=== PATIENT | male | born 1955 | race African-American/Black ===

== ENCOUNTER 2017-09-11 00:05 | Inpatient (IN) ==
[2017-09-11] MEDS ORDERED: methylPREDNISolone SOD SUC 125 MG/2 ML VIAL IV STA (00:14)
[2017-09-11] MEDS ORDERED: ONDANSETRON 4 MG/2 ML VIAL IV STA (00:14)
[2017-09-11] MEDS ORDERED: PIPERACILLIN/TAZOBACTAM 3,375 MG in SODIUM CHLORIDE 0.9% 100 ML IV STA (00:14)
[2017-09-11] MEDS ORDERED: SODIUM CHLORIDE 0.9% 1,000 ML IV STA ×2 (00:14→02:08)
[2017-09-11] MEDS ORDERED: FUROSEMIDE 100 MG/10 ML VIAL IV STA (00:14)
[2017-09-11] MEDS ORDERED: FUROSEMIDE 20 MG/2 ML VIAL ONE ×2 (00:27→01:00)
[2017-09-11] MEDS ORDERED: ONDANSETRON 4 MG/2 ML VIAL ONE (00:27)
[2017-09-11] MEDS ORDERED: DILTIAZEM 100 MG VIAL.ADD IV ONE ×2 (00:27→00:29)
[2017-09-11] MEDS ORDERED: methylPREDNISolone SOD SUC 125 MG/2 ML VIAL ONE (00:27)
[2017-09-11] MEDS ORDERED: DILTIAZEM 50 MG/10 ML VIAL IV ONE ×2 (00:28→02:10)
[2017-09-11] MEDS ORDERED: DILTIAZEM INJ 100 MG in SODIUM CHLORIDE 0.9% 100 ML IV SCH (00:30)
[2017-09-11] MEDS ORDERED: SODIUM CHLORIDE 0.9% 100 ML IV ONE (00:32)
[2017-09-11] MEDS ORDERED: FUROSEMIDE 40 MG/4 ML VIAL IV STA (00:35)
[2017-09-11 00:52] LABS: Basophils % 0.1 % (0.0-0.8); Hematocrit 37.4 VOL% (42.0-52.0); Hemoglobin 12.5 GM/DL (14.0-18.0); Immature Granulocytes % 0.6 %; Immature Granulocytes Absolute 0.08 #; Lymphocytes # 0.5 10*3/uL (1.4-4.0); Lymphocytes % 3.9 % (21.2-54.2); Mean Corpuscular HGB Conc 33.4 GM/DL (32-36); Mean Corpuscular Hemoglobin 32 PG (27-34); Mean Corpuscular Volume 95.9 FL (87-102); Mean Platelet Volume 11.2 FL (9.6-12.0); Monocytes # 0.7 10*3/uL (0.11-0.8); Monocytes % 5.1 % (1.7-12.7); Neutrophils # 12.5 10*3/uL (1.4-7.4); Neutrophils % 90.3 % (38.7-73.9); Platelet Count 276 T/CUMM (130-400); White Blood Count 13.8 T/CUMM (4-12)
[2017-09-11] MEDS ORDERED: PIPERACILLIN/TAZOBACTAM 3,375 MG VIAL IV ONE (01:00)
[2017-09-11 01:02] LABS: INR 1.9; PT Patient Result 19.7 SECS
[2017-09-11 01:17] LABS: Albumin 3.2 G/DL (3.4-5.0); Bilirubin,Total 0.7 MG/DL (0.2-1.0); Calcium 9.1 MG/DL (8.5-10.1); Lactic Acid 6.4 MMOL/L (0.4-2.0); Osmolality,Calculated 303.8 MOS/KG (273-304); Potassium 5.1 MMOL/L (3.5-5.1); Total Protein 6.6 G/DL (6.4-8.3)
[2017-09-11 01:18] LABS: Apearance,Urine CLOUDY (Clear); Bacteria,Urine Moderate /HPF (Few); Bilirubin,Urine Negative (Negative); Blood, Urine Large mg/dL (Negative); Glucose,Urine (UA) >=500 mg/dL (Negative); Ketones,Urine 5 mg/dL (Negative); Mucus,Urine Occasional /LPF (Occasional); Nitrite,Urine Negative (Negative); Protein,Urine 100 MG/DL; RBC,Urine 10 /HPF (0-4); Urine Color Amber (Yellow); WBC,Urine 15 /HPF (0-6)
[2017-09-11] MEDS: DILTIAZEM 50 MG/10 ML VIAL IV STA ×2 (01:19→02:18)
[2017-09-11 01:21] LABS: ABG Base Excess -1.1 MMOL/L (-2.5-2.5); ABG HCO3 23.4 MMOL/L (20-26); ABG Oxygen Saturation 93.3 % (95-100); ABG PCO2 35.5 MM HG (35-48); ABG PH 7.418 (7.35-7.45); ABG PO2 71.9 MM HG (80-95); ABG TCO2 20.4 MMOL/L (23-27)
[2017-09-11 01:29] LABS: Troponin I Only 1.34 NG/ML (0.00-0.045)
[2017-09-11] MEDS ORDERED: cefTRIAXone 1,000 MG in SYRINGE 1 EACH IV SCH (01:30)
[2017-09-11 01:36] LABS: Lymphocytes 2 % (20-55); Segmented Neutrophils 93 % (50-85); Total Cells Counted 100
[2017-09-11 01:38] LABS: INR 1.9; PT Patient Result 19.4 SECS; Partial Thromboplastin Time 32.6 SECS (0-40)
[2017-09-11] MEDS ORDERED: INSULIN REGULAR 100 UNIT/ML SUBCUT STA (01:39)
[2017-09-11] MEDS ORDERED: PROPOFOL 200 MG/20 ML VIAL IV ONE (02:06)
[2017-09-11] MEDS ORDERED: ALBUTEROL 2.5 MG/3 ML NEB RESP TX SCH (02:30)
[2017-09-11] MEDS ORDERED: SUCCINYLCHOLINE 200 MG/10 ML VIAL ONE (02:38)
[2017-09-11] MEDS ORDERED: ETOMIDATE 20 MG/10 ML VIAL IV ONE (02:38)
[2017-09-11] MEDS ORDERED: ETOMIDATE 20 MG/10 ML VIAL IV STA (02:42)
[2017-09-11] MEDS ORDERED: SUCCINYLCHOLINE 200 MG/10 ML VIAL IV STA (02:42)
[2017-09-11] MEDS ORDERED: MIDAZOLAM 10 MG/2 ML VIAL IV STA (02:44)
[2017-09-11] MEDS ORDERED: fentaNYL 100 MCG/2 ML VIAL IV STA (02:45)
[2017-09-11] MEDS ORDERED: fentaNYL 100 MCG/2 ML VIAL ONE (02:49)
[2017-09-11] MEDS ORDERED: MIDAZOLAM 10 MG/2 ML VIAL ONE (02:49)
[2017-09-11] MEDS ORDERED: fentaNYL INJ 1,250 MCG in SODIUM CHLORIDE 0.9% 225 ML IV SCH (03:00)
[2017-09-11] MEDS ORDERED: cefTRIAXone 1,000 MG VIAL ONE (03:07)
[2017-09-11] MEDS ORDERED: INSULIN REGULAR 100 UNIT/ML ONE (03:09)
[2017-09-11] MEDS ORDERED: NOREPINEPHRINE 4 MG/4 ML VIAL IV ONE (03:38)
[2017-09-11] MEDS: MIDAZOLAM 100 MG in SODIUM CHLORIDE 0.9% 80 ML IV SCH (03:43)
[2017-09-11] MEDS: NOREPINEPHRINE 8 MG in SODIUM CHLORIDE 0.9% 242 ML IV SCH ×2 (03:58→20:11)
[2017-09-11] MEDS ORDERED: ENOXAPARIN 40 MG/0.4 ML SYRINGE SUBCUT SCH (04:35)
[2017-09-11] MEDS ORDERED: ONDANSETRON 4 MG/2 ML VIAL IV PRN (04:35)
[2017-09-11] MEDS ORDERED: GLUCAGON 1 MG VIAL IM PRN (04:35)
[2017-09-11] MEDS ORDERED: DEXTROSE 50% 25 GM/50 ML VIAL IV PRN (04:35)
[2017-09-11] MEDS ORDERED: LEVALBUTEROL 1.25 MG/3 ML NEB RESP TX PRN (04:35)
[2017-09-11] MEDS ORDERED: INFLUENZA VIRUS VACCINE 0.5 ML SYRINGE IM ONE (04:41)
[2017-09-11 05:16] LABS: ABG Base Excess -1.9 MMOL/L (-2.5-2.5); ABG HCO3 22.9 MMOL/L (20-26); ABG PCO2 33.6 MM HG (35-48); ABG PH 7.422 (7.35-7.45); ABG TCO2 19.7 MMOL/L (23-27); Allen Test Positive; Pt O2 Delivery Device Ventilator
[2017-09-11] MEDS: LEVALBUTEROL 1.25 MG/3 ML NEB RESP TX SCH ×5 (05:22→20:42)
[2017-09-11 05:36] LABS: Basophils % 0.1 % (0.0-0.8); Hemoglobin 10.8 GM/DL (14.0-18.0); Immature Granulocytes % 0.7 %; Immature Granulocytes Absolute 0.08 #; Lymphocytes # 0.5 10*3/uL (1.4-4.0); Lymphocytes % 4.3 % (21.2-54.2); Mean Corpuscular HGB Conc 32.7 GM/DL (32-36); Mean Corpuscular Hemoglobin 32 PG (27-34); Mean Corpuscular Volume 96.5 FL (87-102); Mean Platelet Volume 11.2 FL (9.6-12.0); Monocytes # 0.5 10*3/uL (0.11-0.8); Monocytes % 3.9 % (1.7-12.7); NRBC # 0.02 10*3/uL; Neutrophils # 11.1 10*3/uL (1.4-7.4); Platelet Count 274 T/CUMM (130-400); Red Blood Count 3.42 MC/CUMM (3.8-5.5); Red Cell Distribution Width 13.8 % (9.3-17.3); White Blood Count 12.2 T/CUMM (4-12)
[2017-09-11] MEDS: METOPROLOL TARTRATE 5 MG/5 ML VIAL IV PRN (05:51)
[2017-09-11 06:12] LABS: Albumin 2.7 G/DL (3.4-5.0); Bilirubin,Direct 0.25 MG/DL (0.0-0.20); Bilirubin,Indirect 0.4 MG/DL (0.0-1.0); Bilirubin,Total 0.6 MG/DL (0.2-1.0); Total Protein 5.7 G/DL (6.4-8.3)
[2017-09-11 06:14] LABS: Albumin 2.6 G/DL (3.4-5.0); Bilirubin,Total 0.8 MG/DL (0.2-1.0); Calcium 8.2 MG/DL (8.5-10.1); Osmolality,Calculated 301.5 MOS/KG (273-304); Potassium 4.3 MMOL/L (3.5-5.1); Total Protein 5.5 G/DL (6.4-8.3)
[2017-09-11 06:19] LABS: Band Neutrophils 1 % (0-10); Hypochromasia 1+; Lymphocytes 3 % (20-55); Microcytosis 1+; Segmented Neutrophils 91 % (50-85); Total Cells Counted 100
[2017-09-11 06:20] LABS: Ovalocytes Slight
[2017-09-11] MEDS: INSULIN REGULAR 100 UNIT/ML SUBCUT SCH ×3 (06:26→18:08)
[2017-09-11] MEDS ORDERED: FUROSEMIDE 40 MG/4 ML VIAL IV SCH (08:00)
[2017-09-11] MEDS ORDERED: SODIUM CHLORIDE 0.9% 1,000 ML IV ONE ×3 (08:13→16:30)
[2017-09-11] MEDS ORDERED: AMIODARONE INJ 150 MG in DEXTROSE 5% 100 ML IV ONE (08:14)
[2017-09-11] MEDS ORDERED: ENOXAPARIN 40 MG/0.4 ML SYRINGE SUBCUT ONE (08:16)
[2017-09-11] MEDS ORDERED: AMIODARONE INJ 450 MG in DEXTROSE 5% 241 ML IV SCH (08:30)
[2017-09-11] MEDS ORDERED: GENTAMICIN INJ 160 MG in SODIUM CHLORIDE 0.9% 100 ML IV SCH (09:00)
[2017-09-11] MEDS ORDERED: DOCUSATE SODIUM 100 MG CAPSULE PO SCH (09:00)
[2017-09-11] MEDS: ASPIRIN EC 81 MG TABLET PO SCH (09:28)
[2017-09-11] MEDS: DOCUSATE SODIUM 100 MG/10 ML UDCUP PO SCH ×2 (09:28→20:08)
[2017-09-11] MEDS: PANTOPRAZOLE 40 MG VIAL IV SCH (09:29)
[2017-09-11] MEDS: SODIUM CHLORIDE 0.9% 1,000 ML IV SCH ×2 (10:18→20:08)
[2017-09-11 10:22] LABS: ABG Base Excess -2.2 MMOL/L (-2.5-2.5); ABG HCO3 22.6 MMOL/L (20-26); ABG Oxygen Saturation 99.6 % (95-100); ABG PCO2 36.6 MM HG (35-48); ABG PH 7.392 (7.35-7.45); Pt O2 Delivery Device Ventilator
[2017-09-11 10:45] LABS: Free T4 (Free Thyroxine) 1.03 NG/DL (0.76-1.46); T4 (Thyroxine) 5.7 UG/DL (4.7-13.3); Thyroid Stimulating Hormone 1.24 uIU/ml (0.358-3.74)
[2017-09-11] MEDS: PIPERACILLIN/TAZOBACTAM 3,375 MG in SODIUM CHLORIDE 0.9% 100 ML IV SCH (15:47)
[2017-09-11] MEDS: VANCOMYCIN INJ 1,000 MG in SODIUM CHLORIDE 0.9% 250 ML IV SCH (15:50)
[2017-09-11] MEDS: AMIODARONE INJ 450 MG in DEXTROSE 5% 241 ML IV SCH ×2 (16:23→20:08)
[2017-09-11 17:40] LABS: Lactic Acid 2.1 MMOL/L (0.4-2.0)
[2017-09-11 17:48] LABS: Albumin 2.4 G/DL (3.4-5.0); Bilirubin,Total 0.5 MG/DL (0.2-1.0); Calcium 7.6 MG/DL (8.5-10.1); Osmolality,Calculated 303.4 MOS/KG (273-304); Potassium 4.5 MMOL/L (3.5-5.1); Total Protein 5.1 G/DL (6.4-8.3)
[2017-09-11] MEDS: ENOXAPARIN 80 MG/0.8 ML SYRINGE SUBCUT SCH (20:08)
[2017-09-12] MEDS: INSULIN REGULAR 100 UNIT/ML SUBCUT SCH ×4 (00:18→19:00)
[2017-09-12] MEDS: PIPERACILLIN/TAZOBACTAM 3,375 MG in SODIUM CHLORIDE 0.9% 100 ML IV SCH ×3 (00:18→16:43)
[2017-09-12] MEDS: LEVALBUTEROL 1.25 MG/3 ML NEB RESP TX SCH ×7 (00:52→23:51)
[2017-09-12] MEDS: VANCOMYCIN INJ 1,000 MG in SODIUM CHLORIDE 0.9% 250 ML IV SCH ×2 (01:29→16:44)
[2017-09-12] MEDS: SODIUM CHLORIDE 0.9% 1,000 ML IV SCH (04:31)
[2017-09-12] MEDS: NOREPINEPHRINE 8 MG in SODIUM CHLORIDE 0.9% 242 ML IV SCH ×2 (04:31→15:17)
[2017-09-12 05:24] LABS: Basophils % 0.1 % (0.0-0.8); Hematocrit 36.6 VOL% (42.0-52.0); Hemoglobin 11.9 GM/DL (14.0-18.0); Immature Granulocytes % 0.4 %; Immature Granulocytes Absolute 0.06 #; Lymphocytes # 1.1 10*3/uL (1.4-4.0); Lymphocytes % 7.6 % (21.2-54.2); Mean Corpuscular HGB Conc 32.5 GM/DL (32-36); Mean Corpuscular Hemoglobin 32 PG (27-34); Mean Corpuscular Volume 98.1 FL (87-102); Mean Platelet Volume 10.9 FL (9.6-12.0); Monocytes # 1.6 10*3/uL (0.11-0.8); Monocytes % 11.1 % (1.7-12.7); NRBC # 0.08 10*3/uL; Neutrophils # 11.8 10*3/uL (1.4-7.4); Neutrophils % 80.8 % (38.7-73.9); Platelet Count 348 T/CUMM (130-400); Red Blood Count 3.73 MC/CUMM (3.8-5.5); Red Cell Distribution Width 13.9 % (9.3-17.3); White Blood Count 14.7 T/CUMM (4-12)
[2017-09-12 06:02] LABS: Risk Ratio 4.14; VLDL CHOLESTEROL 12.2 MG/DL
[2017-09-12 06:06] LABS: Albumin 2.5 G/DL (3.4-5.0); Bilirubin,Total 0.5 MG/DL (0.2-1.0); Calcium 8.1 MG/DL (8.5-10.1); Magnesium 1.9 MG/DL (1.8-2.4); Osmolality,Calculated 298.1 MOS/KG (273-304); Potassium 4.3 MMOL/L (3.5-5.1); Total Protein 5.3 G/DL (6.4-8.3)
[2017-09-12] MEDS: AMIODARONE INJ 450 MG in DEXTROSE 5% 241 ML IV SCH ×2 (06:10→10:58)
[2017-09-12] MEDS: MIDAZOLAM 100 MG in SODIUM CHLORIDE 0.9% 80 ML IV SCH ×2 (06:10→20:55)
[2017-09-12] MEDS ORDERED: LIDOCAINE 2% 20 ML VIAL RESP TX ONE (07:36)
[2017-09-12] MEDS ORDERED: LIDOCAINE 1% 20 ML VIAL MISC INJ ONE (07:36)
[2017-09-12] MEDS ORDERED: FUROSEMIDE 40 MG/4 ML VIAL IV ONE (07:38)
[2017-09-12] MEDS: PANTOPRAZOLE 40 MG VIAL IV SCH (10:45)
[2017-09-12] MEDS: DOCUSATE SODIUM 100 MG/10 ML UDCUP PO SCH ×2 (10:47→21:41)
[2017-09-12] MEDS: ENOXAPARIN 80 MG/0.8 ML SYRINGE SUBCUT SCH ×2 (10:48→21:39)
[2017-09-12] MEDS: ASPIRIN EC 81 MG TABLET PO SCH (10:48)
[2017-09-12] MEDS: AMIODARONE 200 MG TABLET PO SCH ×2 (16:43→21:39)
[2017-09-12] MEDS: METOPROLOL TARTRATE 5 MG/5 ML VIAL IV PRN ×2 (16:44→21:55)
[2017-09-12] MEDS: FUROSEMIDE 40 MG/4 ML VIAL IV SCH (16:44)
[2017-09-12] MEDS: ZINC OXIDE PASTE 113 GM TUBE TOP SCH (21:41)
[2017-09-13] MEDS: PIPERACILLIN/TAZOBACTAM 3,375 MG in SODIUM CHLORIDE 0.9% 100 ML IV SCH ×3 (00:29→16:50)
[2017-09-13] MEDS: INSULIN REGULAR 100 UNIT/ML SUBCUT SCH ×4 (00:47→18:23)
[2017-09-13] MEDS ORDERED: AMIODARONE 450 MG/9 ML VIAL IV ONE (01:20)
[2017-09-13] MEDS ORDERED: AMIODARONE INJ 450 MG in DEXTROSE 5% 241 ML IV SCH (01:30)
[2017-09-13] MEDS: VANCOMYCIN INJ 1,000 MG in SODIUM CHLORIDE 0.9% 250 ML IV SCH ×2 (01:35→13:41)
[2017-09-13 02:57] LABS: ABG HCO3 20.4 MMOL/L (20-26); ABG Oxygen Saturation 99.3 % (95-100); ABG PH 7.383 (7.35-7.45); ABG PO2 227.4 MM HG (80-95); ABG TCO2 21.5 MMOL/L (23-27); Allen Test Positive; Pt O2 Delivery Device Ventilator
[2017-09-13 03:36] LABS: Basophils % 0.2 % (0.0-0.8); Hematocrit 37.6 VOL% (42.0-52.0); Hemoglobin 12.3 GM/DL (14.0-18.0); Immature Granulocytes % 0.6 %; Lymphocytes # 1.3 10*3/uL (1.4-4.0); Lymphocytes % 8.1 % (21.2-54.2); Mean Corpuscular HGB Conc 32.7 GM/DL (32-36); Mean Corpuscular Hemoglobin 32 PG (27-34); Mean Corpuscular Volume 97.9 FL (87-102); Mean Platelet Volume 10.2 FL (9.6-12.0); Monocytes # 1.7 10*3/uL (0.11-0.8); Monocytes % 10.3 % (1.7-12.7); NRBC # 0.05 10*3/uL; Neutrophils # 13.2 10*3/uL (1.4-7.4); Neutrophils % 80.8 % (38.7-73.9); Platelet Count 331 T/CUMM (130-400); Red Blood Count 3.84 MC/CUMM (3.8-5.5); Red Cell Distribution Width 14.2 % (9.3-17.3); White Blood Count 16.4 T/CUMM (4-12)
[2017-09-13] MEDS: LEVALBUTEROL 1.25 MG/3 ML NEB RESP TX SCH ×6 (04:10→23:38)
[2017-09-13 04:15] LABS: Albumin 2.5 G/DL (3.4-5.0); Bilirubin,Total 0.7 MG/DL (0.2-1.0); Calcium 8.1 MG/DL (8.5-10.1); Total Protein 5.5 G/DL (6.4-8.3)
[2017-09-13] MEDS: NOREPINEPHRINE 8 MG in SODIUM CHLORIDE 0.9% 242 ML IV SCH ×2 (05:45→08:26)
[2017-09-13 05:52] LABS: Magnesium 1.7 MG/DL (1.8-2.4); Phosphorous 4.4 MG/DL (2.5-4.9); Prealbumin 12.6 MG/DL (20-40)
[2017-09-13] MEDS: DOCUSATE SODIUM 100 MG/10 ML UDCUP PO SCH ×2 (09:04→20:39)
[2017-09-13] MEDS: ASPIRIN EC 81 MG TABLET PO SCH (09:04)
[2017-09-13] MEDS: FUROSEMIDE 40 MG/4 ML VIAL IV SCH ×2 (09:04→16:49)
[2017-09-13] MEDS: ENOXAPARIN 80 MG/0.8 ML SYRINGE SUBCUT SCH ×2 (09:04→20:39)
[2017-09-13] MEDS: AMIODARONE 200 MG TABLET PO SCH (09:06)
[2017-09-13] MEDS: PANTOPRAZOLE 40 MG VIAL IV SCH (09:20)
[2017-09-13] MEDS: MIDAZOLAM 100 MG in SODIUM CHLORIDE 0.9% 80 ML IV SCH ×2 (09:21→13:38)
[2017-09-13] MEDS: AMIODARONE INJ 450 MG in DEXTROSE 5% 241 ML IV SCH (09:21)
[2017-09-13] MEDS: ZINC OXIDE PASTE 113 GM TUBE TOP SCH ×2 (13:41→21:39)
[2017-09-13] MEDS: fentaNYL 100 MCG/2 ML VIAL IV PRN (21:36)
[2017-09-14] MEDS: AMIODARONE INJ 450 MG in DEXTROSE 5% 241 ML IV SCH ×2 (00:01→14:31)
[2017-09-14] MEDS: PIPERACILLIN/TAZOBACTAM 3,375 MG in SODIUM CHLORIDE 0.9% 100 ML IV SCH ×3 (00:25→15:22)
[2017-09-14] MEDS: INSULIN REGULAR 100 UNIT/ML SUBCUT SCH ×4 (00:25→18:31)
[2017-09-14 03:10] LABS: Allen Test Positive; Pt O2 Delivery Device Ventilator
[2017-09-14 03:11] LABS: ABG Base Excess 2.3 MMOL/L (-2.5-2.5); ABG HCO3 26.4 MMOL/L (20-26); ABG Oxygen Saturation 99.2 % (95-100); ABG PCO2 39.5 MM HG (35-48); ABG PH 7.435 (7.35-7.45); ABG TCO2 23.8 MMOL/L (23-27)
[2017-09-14] MEDS: LEVALBUTEROL 1.25 MG/3 ML NEB RESP TX SCH ×6 (03:58→23:30)
[2017-09-14] MEDS: fentaNYL 100 MCG/2 ML VIAL IV PRN ×3 (04:34→22:08)
[2017-09-14] MEDS: NOREPINEPHRINE 8 MG in SODIUM CHLORIDE 0.9% 242 ML IV SCH ×2 (04:36→12:35)
[2017-09-14 05:11] LABS: Basophils % 0.3 % (0.0-0.8); Eosinophils # 0.1 10*3/uL (0.0-0.87); Eosinophils % 0.7 % (0.00-10.9); Hematocrit 34.1 VOL% (42.0-52.0); Hemoglobin 11.3 GM/DL (14.0-18.0); Immature Granulocytes % 0.3 %; Immature Granulocytes Absolute 0.02 #; Lymphocytes # 0.8 10*3/uL (1.4-4.0); Lymphocytes % 10.4 % (21.2-54.2); Mean Corpuscular HGB Conc 33.1 GM/DL (32-36); Mean Corpuscular Hemoglobin 32 PG (27-34); Mean Corpuscular Volume 96.9 FL (87-102); Mean Platelet Volume 10.1 FL (9.6-12.0); Monocytes # 0.7 10*3/uL (0.11-0.8); Monocytes % 9.1 % (1.7-12.7); Neutrophils # 6.1 10*3/uL (1.4-7.4); Neutrophils % 79.2 % (38.7-73.9); Platelet Count 213 T/CUMM (130-400); Red Blood Count 3.52 MC/CUMM (3.8-5.5); Red Cell Distribution Width 14.1 % (9.3-17.3); White Blood Count 7.7 T/CUMM (4-12)
[2017-09-14 05:24] LABS: Albumin 2.3 G/DL (3.4-5.0); Bilirubin,Total 1.3 MG/DL (0.2-1.0); Magnesium 1.7 MG/DL (1.8-2.4); Osmolality,Calculated 304.6 MOS/KG (273-304); Potassium 2.9 MMOL/L (3.5-5.1)
[2017-09-14] MEDS: MIDAZOLAM 100 MG in SODIUM CHLORIDE 0.9% 80 ML IV SCH (08:09)
[2017-09-14] MEDS: FUROSEMIDE 40 MG/4 ML VIAL IV SCH ×2 (08:22→15:22)
[2017-09-14] MEDS: PANTOPRAZOLE 40 MG VIAL IV SCH (08:22)
[2017-09-14] MEDS: VANCOMYCIN INJ 1,000 MG in SODIUM CHLORIDE 0.9% 250 ML IV SCH (08:23)
[2017-09-14] MEDS: DOCUSATE SODIUM 100 MG/10 ML UDCUP PO SCH ×2 (08:24→22:00)
[2017-09-14] MEDS: ASPIRIN EC 81 MG TABLET PO SCH (08:24)
[2017-09-14] MEDS: ZINC OXIDE PASTE 113 GM TUBE TOP SCH ×2 (08:24→22:00)
[2017-09-14] MEDS: ENOXAPARIN 80 MG/0.8 ML SYRINGE SUBCUT SCH ×2 (08:25→21:55)
[2017-09-14] MEDS: DEXMEDETOMIDINE 200 MCG in SODIUM CHLORIDE 0.9% 48 ML IV SCH ×2 (09:27→15:22)
[2017-09-14] MEDS ORDERED: MAGNESIUM SULF RIDER 4 GM in PREMIX 1 EACH IV PRN (11:06)
[2017-09-14] MEDS: POTASSIUM CHLORIDE RIDER 20 MEQ in PREMIX 1 EACH IV PRN ×3 (12:34→23:00)
[2017-09-14] MEDS: MAGNESIUM SULF RIDER 2 GM in PREMIX 1 EACH IV PRN (12:34)
[2017-09-14] MEDS: POTASSIUM CHLORIDE RIDER 10 MEQ in PREMIX 1 EACH IV PRN (16:29)
[2017-09-14] MEDS: PROPOFOL 1,000 MG/100 ML BOTTLE IV SCH (21:04)
[2017-09-15] MEDS: POTASSIUM CHLORIDE RIDER 20 MEQ in PREMIX 1 EACH IV PRN ×2 (01:00→11:16)
[2017-09-15] MEDS: INSULIN REGULAR 100 UNIT/ML SUBCUT SCH ×4 (01:05→18:06)
[2017-09-15] MEDS: PIPERACILLIN/TAZOBACTAM 3,375 MG in SODIUM CHLORIDE 0.9% 100 ML IV SCH ×3 (01:09→15:53)
[2017-09-15] MEDS: fentaNYL 100 MCG/2 ML VIAL IV PRN ×2 (01:23→11:04)
[2017-09-15] MEDS: PROPOFOL 1,000 MG/100 ML BOTTLE IV SCH ×3 (03:30→19:56)
[2017-09-15] MEDS: LEVALBUTEROL 1.25 MG/3 ML NEB RESP TX SCH ×5 (03:50→20:45)
[2017-09-15] MEDS: VANCOMYCIN INJ 1,000 MG in SODIUM CHLORIDE 0.9% 250 ML IV SCH (04:29)
[2017-09-15] MEDS: POTASSIUM CHLORIDE RIDER 10 MEQ in PREMIX 1 EACH IV PRN ×2 (04:34→13:11)
[2017-09-15 04:56] LABS: Basophils % 0.2 % (0.0-0.8); Eosinophils # 0.2 10*3/uL (0.0-0.87); Eosinophils % 1.5 % (0.00-10.9); Hematocrit 34.7 VOL% (42.0-52.0); Hemoglobin 11.7 GM/DL (14.0-18.0); Immature Granulocytes % 0.3 %; Immature Granulocytes Absolute 0.04 #; Lymphocytes # 1.2 10*3/uL (1.4-4.0); Lymphocytes % 9.5 % (21.2-54.2); Mean Corpuscular HGB Conc 33.7 GM/DL (32-36); Mean Corpuscular Hemoglobin 32 PG (27-34); Mean Corpuscular Volume 95.3 FL (87-102); Mean Platelet Volume 10.3 FL (9.6-12.0); Monocytes % 7.9 % (1.7-12.7); Neutrophils # 10.5 10*3/uL (1.4-7.4); Neutrophils % 80.6 % (38.7-73.9); Platelet Count 274 T/CUMM (130-400); Red Blood Count 3.64 MC/CUMM (3.8-5.5); Red Cell Distribution Width 14.3 % (9.3-17.3); White Blood Count 13.1 T/CUMM (4-12)
[2017-09-15 05:23] LABS: Calcium 7.8 MG/DL (8.5-10.1); Magnesium 1.8 MG/DL (1.8-2.4); Osmolality,Calculated 300.7 MOS/KG (273-304); Potassium 3.4 MMOL/L (3.5-5.1)
[2017-09-15] MEDS: NOREPINEPHRINE 8 MG in SODIUM CHLORIDE 0.9% 242 ML IV SCH ×2 (07:30→11:33)
[2017-09-15] MEDS: AMIODARONE INJ 450 MG in DEXTROSE 5% 241 ML IV SCH ×2 (07:31→08:17)
[2017-09-15] MEDS: PANTOPRAZOLE 40 MG VIAL IV SCH (08:57)
[2017-09-15] MEDS: FUROSEMIDE 40 MG/4 ML VIAL IV SCH ×2 (08:57→15:52)
[2017-09-15] MEDS: ENOXAPARIN 80 MG/0.8 ML SYRINGE SUBCUT SCH ×2 (08:58→20:27)
[2017-09-15] MEDS: ZINC OXIDE PASTE 113 GM TUBE TOP SCH ×2 (08:59→20:28)
[2017-09-15] MEDS: DOCUSATE SODIUM 100 MG/10 ML UDCUP PO SCH ×2 (08:59→20:28)
[2017-09-15] MEDS: ASPIRIN CHEW 81 MG TABLET PO SCH (08:59)
[2017-09-15] MEDS: AMIODARONE 200 MG TABLET PO SCH ×2 (09:03→20:28)
[2017-09-15] MEDS: ACETAMINOPHEN 325 MG TABLET PO PRN ×2 (14:25→19:54)
[2017-09-16] MEDS: LEVALBUTEROL 1.25 MG/3 ML NEB RESP TX SCH ×6 (00:32→20:05)
[2017-09-16] MEDS: INSULIN REGULAR 100 UNIT/ML SUBCUT SCH ×4 (00:44→17:44)
[2017-09-16] MEDS: VANCOMYCIN INJ 1,000 MG in SODIUM CHLORIDE 0.9% 250 ML IV SCH ×2 (01:00→13:36)
[2017-09-16] MEDS: PIPERACILLIN/TAZOBACTAM 3,375 MG in SODIUM CHLORIDE 0.9% 100 ML IV SCH ×3 (01:00→16:45)
[2017-09-16] MEDS: PROPOFOL 1,000 MG/100 ML BOTTLE IV SCH ×4 (01:06→21:02)
[2017-09-16 03:59] LABS: ABG Base Excess 6.7 MMOL/L (-2.5-2.5); ABG HCO3 30.5 MMOL/L (20-26); ABG Oxygen Saturation 98.8 % (95-100); ABG PCO2 41.7 MM HG (35-48); ABG PH 7.477 (7.35-7.45); ABG TCO2 28.1 MMOL/L (23-27)
[2017-09-16 05:58] LABS: Basophils % 0.3 % (0.0-0.8); Eosinophils # 0.4 10*3/uL (0.0-0.87); Eosinophils % 4.6 % (0.00-10.9); Hematocrit 29.9 VOL% (42.0-52.0); Hemoglobin 9.9 GM/DL (14.0-18.0); Immature Granulocytes % 0.5 %; Immature Granulocytes Absolute 0.04 #; Lymphocytes # 0.8 10*3/uL (1.4-4.0); Lymphocytes % 10.3 % (21.2-54.2); Mean Corpuscular HGB Conc 33.1 GM/DL (32-36); Mean Corpuscular Hemoglobin 32 PG (27-34); Mean Corpuscular Volume 97.4 FL (87-102); Mean Platelet Volume 10.2 FL (9.6-12.0); Monocytes # 0.6 10*3/uL (0.11-0.8); Monocytes % 8.4 % (1.7-12.7); Neutrophils # 5.7 10*3/uL (1.4-7.4); Neutrophils % 75.9 % (38.7-73.9); Platelet Count 174 T/CUMM (130-400); Red Blood Count 3.07 MC/CUMM (3.8-5.5); Red Cell Distribution Width 14.7 % (9.3-17.3); White Blood Count 7.5 T/CUMM (4-12)
[2017-09-16 06:24] LABS: Calcium 7.8 MG/DL (8.5-10.1); Osmolality,Calculated 294.7 MOS/KG (273-304); Potassium 3.5 MMOL/L (3.5-5.1)
[2017-09-16] MEDS: ACETAMINOPHEN 325 MG TABLET PO PRN (06:46)
[2017-09-16] MEDS: NOREPINEPHRINE 8 MG in SODIUM CHLORIDE 0.9% 242 ML IV SCH (06:52)
[2017-09-16] MEDS: PANTOPRAZOLE 40 MG VIAL IV SCH (08:33)
[2017-09-16] MEDS: FUROSEMIDE 40 MG/4 ML VIAL IV SCH ×2 (08:33→16:45)
[2017-09-16] MEDS: DOCUSATE SODIUM 100 MG/10 ML UDCUP PO SCH ×2 (08:34→21:01)
[2017-09-16] MEDS: ASPIRIN CHEW 81 MG TABLET PO SCH (08:34)
[2017-09-16] MEDS: ENOXAPARIN 80 MG/0.8 ML SYRINGE SUBCUT SCH (08:34)
[2017-09-16] MEDS: POTASSIUM CHLORIDE RIDER 20 MEQ in PREMIX 1 EACH IV PRN (08:34)
[2017-09-16] MEDS: AMIODARONE 200 MG TABLET PO SCH ×2 (08:34→21:01)
[2017-09-16] MEDS: ZINC OXIDE PASTE 113 GM TUBE TOP SCH ×2 (08:35→21:02)
[2017-09-16] MEDS: POTASSIUM CHLORIDE RIDER 10 MEQ in PREMIX 1 EACH IV PRN (10:40)
[2017-09-16] MEDS: oxyCODONE IR 5 MG TABLET PO PRN (10:56)
[2017-09-16] MEDS ORDERED: DESITIN 4OZ/NYSTATIN 15 GRAM MIXTURE PASTE TOP SCH (21:00)
[2017-09-17] MEDS: LEVALBUTEROL 1.25 MG/3 ML NEB RESP TX SCH ×6 (00:44→19:16)
[2017-09-17] MEDS: VANCOMYCIN INJ 1,000 MG in SODIUM CHLORIDE 0.9% 250 ML IV SCH ×2 (01:00→15:22)
[2017-09-17] MEDS: INSULIN REGULAR 100 UNIT/ML SUBCUT SCH ×4 (01:19→18:51)
[2017-09-17 04:49] LABS: Basophils % 0.1 % (0.0-0.8); Eosinophils # 0.4 10*3/uL (0.0-0.87); Eosinophils % 5.7 % (0.00-10.9); Immature Granulocytes % 0.3 %; Immature Granulocytes Absolute 0.02 #; Lymphocytes # 0.8 10*3/uL (1.4-4.0); Mean Corpuscular HGB Conc 33.3 GM/DL (32-36); Mean Corpuscular Hemoglobin 32 PG (27-34); Mean Corpuscular Volume 96.8 FL (87-102); Mean Platelet Volume 10.3 FL (9.6-12.0); Monocytes # 0.5 10*3/uL (0.11-0.8); Monocytes % 7.9 % (1.7-12.7); Neutrophils # 5.1 10*3/uL (1.4-7.4); Platelet Count 183 T/CUMM (130-400); Red Cell Distribution Width 15.1 % (9.3-17.3); White Blood Count 6.8 T/CUMM (4-12)
[2017-09-17 05:15] LABS: Calcium 7.9 MG/DL (8.5-10.1); Osmolality,Calculated 290.8 MOS/KG (273-304); Potassium 3.5 MMOL/L (3.5-5.1)
[2017-09-17 05:20] LABS: Magnesium 1.7 MG/DL (1.8-2.4); Phosphorous 2.1 MG/DL (2.5-4.9); Prealbumin 10.1 MG/DL (20-40)
[2017-09-17] MEDS: PROPOFOL 1,000 MG/100 ML BOTTLE IV SCH (06:32)
[2017-09-17] MEDS: NOREPINEPHRINE 8 MG in SODIUM CHLORIDE 0.9% 242 ML IV SCH (06:33)
[2017-09-17] MEDS ORDERED: FUROSEMIDE 20 MG/2 ML VIAL ONE ×2 (08:46→09:01)
[2017-09-17] MEDS: DEXMEDETOMIDINE 200 MCG in SODIUM CHLORIDE 0.9% 48 ML IV SCH ×3 (08:56→23:00)
[2017-09-17] MEDS: PIPERACILLIN/TAZOBACTAM 3,375 MG in SODIUM CHLORIDE 0.9% 100 ML IV SCH ×4 (08:56→23:12)
[2017-09-17] MEDS: PANTOPRAZOLE 40 MG VIAL IV SCH (08:57)
[2017-09-17] MEDS: FUROSEMIDE 40 MG/4 ML VIAL IV SCH ×2 (08:57→15:23)
[2017-09-17] MEDS: ASPIRIN CHEW 81 MG TABLET PO SCH (08:58)
[2017-09-17] MEDS: AMIODARONE 200 MG TABLET PO SCH ×2 (08:58→20:50)
[2017-09-17] MEDS: DOCUSATE SODIUM 100 MG/10 ML UDCUP PO SCH ×2 (08:59→20:46)
[2017-09-17] MEDS: ZINC OXIDE PASTE 113 GM TUBE TOP SCH ×2 (08:59→20:47)
[2017-09-17] MEDS ORDERED: ENOXAPARIN 40 MG/0.4 ML SYRINGE SUBCUT SCH (09:00)
[2017-09-17] MEDS: HALOPERIDOL 5 MG/ML AMP IV SCH ×3 (09:04→22:55)
[2017-09-17 11:15] LABS: Allen Test Positive; Pt O2 Delivery Device Ventilator
[2017-09-17] MEDS: oxyCODONE IR 5 MG TABLET PO PRN (11:19)
[2017-09-17 11:40] LABS: ABG PCO2 26.6 MM HG (35-48); ABG PH 7.604 (7.35-7.45); ABG PO2 99.9 MM HG (80-95)
[2017-09-17 11:41] LABS: ABG HCO3 25.8 MMOL/L (20-26); ABG TCO2 26.6 MMOL/L (23-27)
[2017-09-17] MEDS: MAGNESIUM SULF RIDER 2 GM in PREMIX 1 EACH IV PRN (12:15)
[2017-09-17] MEDS: METOPROLOL SUCCINATE XL 25 MG TABLET PO SCH (12:16)
[2017-09-17] MEDS ORDERED: MAGNESIUM SULF RIDER 2 GM in PREMIX 1 EACH IV ONE (13:09)
[2017-09-17] MEDS: FLUoxetine 20 MG CAPSULE PO SCH (15:23)
[2017-09-17] MEDS: ALPRAZolam 0.5 MG TABLET PO PRN (15:23)
[2017-09-17] MEDS: WARFARIN 5 MG TABLET PO SCH (18:05)
[2017-09-17] MEDS: NYSTATIN/TRIAMCINOLONE CREAM 15 GM TUBE TOP SCH (20:46)
[2017-09-17] MEDS ORDERED: INSULIN GLARGINE 100 UNIT/ML SUBCUT SCH (21:00)
[2017-09-18] MEDS: LEVALBUTEROL 1.25 MG/3 ML NEB RESP TX SCH ×7 (00:35→23:02)
[2017-09-18] MEDS: VANCOMYCIN INJ 1,000 MG in SODIUM CHLORIDE 0.9% 250 ML IV SCH ×2 (00:47→15:35)
[2017-09-18] MEDS: INSULIN REGULAR 100 UNIT/ML SUBCUT SCH ×4 (00:47→19:01)
[2017-09-18] MEDS: ALPRAZolam 0.5 MG TABLET PO PRN (04:37)
[2017-09-18 04:42] LABS: ABG Base Excess 5.4 MMOL/L (-2.5-2.5); ABG HCO3 29.4 MMOL/L (20-26); ABG Oxygen Saturation 99.2 % (95-100); ABG PH 7.517 (7.35-7.45); ABG TCO2 24.9 MMOL/L (23-27); Allen Test Positive; Pt O2 Delivery Device Ventilator
[2017-09-18 05:28] LABS: PT Patient Result 10.6 SECS
[2017-09-18] MEDS: DEXMEDETOMIDINE 200 MCG in SODIUM CHLORIDE 0.9% 48 ML IV SCH ×2 (06:47→11:45)
[2017-09-18] MEDS: AMIODARONE 200 MG TABLET PO SCH (09:03)
[2017-09-18] MEDS: DOCUSATE SODIUM 100 MG/10 ML UDCUP PO SCH ×2 (09:03→20:14)
[2017-09-18] MEDS: FUROSEMIDE 40 MG/4 ML VIAL IV SCH ×2 (09:04→19:02)
[2017-09-18] MEDS: ASPIRIN CHEW 81 MG TABLET PO SCH (09:04)
[2017-09-18] MEDS: PANTOPRAZOLE 40 MG VIAL IV SCH (09:10)
[2017-09-18] MEDS: PIPERACILLIN/TAZOBACTAM 3,375 MG in SODIUM CHLORIDE 0.9% 100 ML IV SCH ×2 (09:22→19:02)
[2017-09-18] MEDS: FLUoxetine 20 MG CAPSULE PO SCH (09:22)
[2017-09-18] MEDS: ZINC OXIDE PASTE 113 GM TUBE TOP SCH ×2 (09:26→20:14)
[2017-09-18] MEDS: NYSTATIN/TRIAMCINOLONE CREAM 15 GM TUBE TOP SCH ×2 (09:26→20:14)
[2017-09-18] MEDS ORDERED: METOPROLOL TARTRATE 25 MG TABLET PO SCH (09:30)
[2017-09-18] MEDS: HALOPERIDOL 5 MG/ML AMP IV SCH ×3 (10:45→20:13)
[2017-09-18 11:31] LABS: ABG Base Excess 4.8 MMOL/L (-2.5-2.5); ABG HCO3 28.7 MMOL/L (20-26); ABG Oxygen Saturation 98.9 % (95-100); ABG PCO2 42.2 MM HG (35-48); ABG PH 7.449 (7.35-7.45); ABG TCO2 26.5 MMOL/L (23-27); Allen Test Positive; Pt O2 Delivery Device Ventilator
[2017-09-18] MEDS ORDERED: METOPROLOL SUCCINATE XL 25 MG TABLET PO SCH (13:30)
[2017-09-18] MEDS ORDERED: POTASSIUM PHOSPHATE 30 MMOL in SODIUM CHLORIDE 0.9% 250 ML IV ONE (15:00)
[2017-09-18] MEDS: WARFARIN 5 MG TABLET PO SCH (19:02)
[2017-09-18] MEDS: METOPROLOL SUCCINATE XL 25 MG TABLET PO SCH (19:58)
[2017-09-18] MEDS: METOPROLOL TARTRATE 25 MG TABLET PO SCH (20:14)
[2017-09-18] MEDS: INSULIN GLARGINE 100 UNIT/ML SUBCUT SCH (20:14)
[2017-09-19] MEDS: VANCOMYCIN INJ 1,000 MG in SODIUM CHLORIDE 0.9% 250 ML IV SCH (01:25)
[2017-09-19] MEDS: HALOPERIDOL 5 MG/ML AMP IV SCH (01:26)
[2017-09-19] MEDS: INSULIN REGULAR 100 UNIT/ML SUBCUT SCH ×4 (01:26→18:55)
[2017-09-19] MEDS: PIPERACILLIN/TAZOBACTAM 3,375 MG in SODIUM CHLORIDE 0.9% 100 ML IV SCH (01:26)
[2017-09-19] MEDS: LEVALBUTEROL 1.25 MG/3 ML NEB RESP TX SCH ×6 (03:00→23:24)
[2017-09-19 05:33] LABS: Basophils % 0.2 % (0.0-0.8); Eosinophils # 0.3 10*3/uL (0.0-0.87); Eosinophils % 2.6 % (0.00-10.9); Hematocrit 31.4 VOL% (42.0-52.0); Hemoglobin 10.2 GM/DL (14.0-18.0); Immature Granulocytes % 0.5 %; Immature Granulocytes Absolute 0.06 #; Lymphocytes # 0.8 10*3/uL (1.4-4.0); Lymphocytes % 7.4 % (21.2-54.2); Mean Corpuscular HGB Conc 32.5 GM/DL (32-36); Mean Corpuscular Hemoglobin 32 PG (27-34); Mean Corpuscular Volume 99.1 FL (87-102); Mean Platelet Volume 10.4 FL (9.6-12.0); Monocytes # 0.9 10*3/uL (0.11-0.8); Monocytes % 7.8 % (1.7-12.7); Neutrophils # 9.3 10*3/uL (1.4-7.4); Neutrophils % 81.5 % (38.7-73.9); Platelet Count 200 T/CUMM (130-400); Red Blood Count 3.17 MC/CUMM (3.8-5.5); Red Cell Distribution Width 15.3 % (9.3-17.3); White Blood Count 11.4 T/CUMM (4-12)
[2017-09-19 05:57] LABS: Calcium 8.4 MG/DL (8.5-10.1); Osmolality,Calculated 286.3 MOS/KG (273-304); Potassium 3.3 MMOL/L (3.5-5.1)
[2017-09-19 05:59] LABS: INR 1.1; PT Patient Result 11.2 SECS
[2017-09-19 06:06] LABS: Free T4 (Free Thyroxine) 1.16 NG/DL (0.76-1.46); Thyroid Stimulating Hormone 3.72 uIU/ml (0.358-3.74)
[2017-09-19] MEDS: FUROSEMIDE 40 MG/4 ML VIAL IV SCH ×2 (08:38→16:29)
[2017-09-19] MEDS: DOCUSATE SODIUM 100 MG/10 ML UDCUP PO SCH ×2 (08:38→22:53)
[2017-09-19] MEDS: METOPROLOL TARTRATE 25 MG TABLET PO SCH (08:38)
[2017-09-19] MEDS: PANTOPRAZOLE 40 MG VIAL IV SCH (08:38)
[2017-09-19] MEDS: FLUoxetine 20 MG CAPSULE PO SCH (08:38)
[2017-09-19] MEDS: NITROFURANTOIN MACRO/MONO 100 MG CAPSULE PO SCH ×2 (08:38→22:53)
[2017-09-19] MEDS: ASPIRIN CHEW 81 MG TABLET PO SCH (08:39)
[2017-09-19] MEDS: POTASSIUM CHLORIDE RIDER 20 MEQ in PREMIX 1 EACH IV PRN (08:39)
[2017-09-19] MEDS: AMIODARONE 200 MG TABLET PO SCH (08:39)
[2017-09-19] MEDS: NYSTATIN/TRIAMCINOLONE CREAM 15 GM TUBE TOP SCH ×2 (09:58→22:54)
[2017-09-19] MEDS: HALOPERIDOL CONCENTRATE 2 MG/ML 15 ML BOTTLE PO SCH ×2 (09:58→22:54)
[2017-09-19] MEDS: ZINC OXIDE PASTE 113 GM TUBE TOP SCH ×2 (09:58→22:54)
[2017-09-19] MEDS: CARVEDILOL 3.125 MG TABLET PO SCH ×2 (09:58→22:53)
[2017-09-19] MEDS: LISINOPRIL 2.5 MG TABLET PO SCH ×2 (10:30→22:53)
[2017-09-19] MEDS: POTASSIUM CHLORIDE 20 MEQ/15 ML UDCUP PER TUBE SCH (16:29)
[2017-09-19] MEDS: WARFARIN 7.5 MG TABLET PO SCH ×2 (18:53→18:54)
[2017-09-19] MEDS: INSULIN GLARGINE 100 UNIT/ML SUBCUT SCH (22:53)
[2017-09-20] MEDS: LEVALBUTEROL 1.25 MG/3 ML NEB RESP TX SCH ×3 (03:28→11:16)
[2017-09-20 04:26] LABS: Basophils % 0.2 % (0.0-0.8); Eosinophils # 0.2 10*3/uL (0.0-0.87); Eosinophils % 1.9 % (0.00-10.9); Hematocrit 34.5 VOL% (42.0-52.0); Hemoglobin 11.2 GM/DL (14.0-18.0); Immature Granulocytes % 0.6 %; Immature Granulocytes Absolute 0.06 #; Lymphocytes # 0.8 10*3/uL (1.4-4.0); Lymphocytes % 7.8 % (21.2-54.2); Mean Corpuscular HGB Conc 32.5 GM/DL (32-36); Mean Corpuscular Hemoglobin 32 PG (27-34); Mean Corpuscular Volume 98.3 FL (87-102); Mean Platelet Volume 9.9 FL (9.6-12.0); Monocytes # 0.9 10*3/uL (0.11-0.8); Monocytes % 8.6 % (1.7-12.7); Neutrophils # 8.4 10*3/uL (1.4-7.4); Neutrophils % 80.9 % (38.7-73.9); Platelet Count 230 T/CUMM (130-400); Red Blood Count 3.51 MC/CUMM (3.8-5.5); Red Cell Distribution Width 15.5 % (9.3-17.3); White Blood Count 10.3 T/CUMM (4-12)
[2017-09-20 04:36] LABS: INR 1.1; PT Patient Result 11.4 SECS
[2017-09-20] MEDS: INSULIN REGULAR 100 UNIT/ML SUBCUT SCH ×3 (04:52→12:15)
[2017-09-20 05:00] LABS: Calcium 8.5 MG/DL (8.5-10.1); Magnesium 1.9 MG/DL (1.8-2.4); Osmolality,Calculated 287.4 MOS/KG (273-304); Potassium 3.9 MMOL/L (3.5-5.1)
[2017-09-20 07:51] VITALS: BP 135/70
[2017-09-20] MEDS: FUROSEMIDE 40 MG/4 ML VIAL IV SCH (08:57)
[2017-09-20] MEDS: ZINC OXIDE PASTE 113 GM TUBE TOP SCH (09:11)
[2017-09-20] MEDS: NYSTATIN/TRIAMCINOLONE CREAM 15 GM TUBE TOP SCH (09:12)
[2017-09-20] MEDS: POTASSIUM CHLORIDE 20 MEQ/15 ML UDCUP PER TUBE SCH (10:39)
[2017-09-20] MEDS: AMIODARONE 200 MG TABLET PO SCH (10:40)
[2017-09-20] MEDS: CARVEDILOL 3.125 MG TABLET PO SCH (10:40)
[2017-09-20] MEDS: NITROFURANTOIN MACRO/MONO 100 MG CAPSULE PO SCH (10:40)
[2017-09-20] MEDS: HALOPERIDOL CONCENTRATE 2 MG/ML 15 ML BOTTLE PO SCH (10:41)
[2017-09-20] MEDS: LISINOPRIL 2.5 MG TABLET PO SCH (10:41)
[2017-09-20] MEDS: DOCUSATE SODIUM 100 MG/10 ML UDCUP PO SCH (10:41)
[2017-09-20] MEDS: FLUoxetine 20 MG CAPSULE PO SCH (10:41)
[2017-09-20] MEDS: ASPIRIN CHEW 81 MG TABLET PO SCH (10:42)
[2017-09-20] MEDS: PANTOPRAZOLE 40 MG VIAL IV SCH (10:42)
== END 2017-09-20 13:30 | DRG 870 ==
LOC: EDBD → EDUNIT# → N.ED 00:05 → SUATTDRO 02:51 → N.EDINP 02:51 → N.CC 04:09 → N.2E 09-19 12:24
PROVIDERS: ADMIT Family Medicine; ATTEND Internal Medicine

== ENCOUNTER 2017-12-19 11:51 | Inpatient (IN) ==
[2017-12-19] MEDS ORDERED: SODIUM CHLORIDE 0.9% 1,000 ML IV STA (12:44)
[2017-12-19 12:52] LABS: Basophils % 0.2 % (0.0-0.8); Eosinophils % 0.1 % (0.00-10.9); Hemoglobin 11.9 GM/DL (14.0-18.0); Immature Granulocytes % 0.6 %; Immature Granulocytes Absolute 0.09 #; Lymphocytes # 1.6 10*3/uL (1.4-4.0); Lymphocytes % 10.7 % (21.2-54.2); Mean Corpuscular HGB Conc 33.1 GM/DL (32-36); Mean Corpuscular Hemoglobin 34 PG (27-34); Mean Corpuscular Volume 101.7 FL (87-102); Mean Platelet Volume 10.8 FL (9.6-12.0); Monocytes # 1.2 10*3/uL (0.11-0.8); NRBC # 0.02 10*3/uL; Neutrophils # 12.1 10*3/uL (1.4-7.4); Neutrophils % 80.4 % (38.7-73.9); Platelet Count 231 T/CUMM (130-400); Red Blood Count 3.54 MC/CUMM (3.8-5.5); Red Cell Distribution Width 14.2 % (9.3-17.3)
[2017-12-19] MEDS ORDERED: SODIUM CHLORIDE 0.9% 1,650 ML IV ONE (12:57)
[2017-12-19] MEDS ORDERED: MEROPENEM 1,000 MG VIAL IV ONE (13:04)
[2017-12-19] MEDS ORDERED: SODIUM CHLORIDE 0.9% 100 ML IV ONE (13:04)
[2017-12-19 13:06] LABS: Ammonia 24 UMOL/L (11-32)
[2017-12-19 13:09] LABS: Apearance,Urine CLOUDY (Clear); Bacteria,Urine Few /HPF (Few); Bilirubin,Urine Negative (Negative); Blood, Urine Large mg/dL (Negative); Glucose,Urine (UA) Negative (Negative); Hyaline Casts,Urine 39 /LPF (0-3); Ketones,Urine Negative (Negative); Mucus,Urine Occasional /LPF (Occasional); Nitrite,Urine Negative (Negative); Protein,Urine 30 MG/DL; RBC,Urine 3251 /HPF (0-4); Urine Color Amber (Yellow); Urine Specific Gravity 1.015 (1.001-1.035); Urine Urobilinogen < 2.0 EU/DL (0.2-1.0); WBC,Urine 80 /HPF (0-6)
[2017-12-19 13:12] LABS: Alanine Aminotransferase 413 U/L (16-61); Alkaline Phosphatase 35 U/L (45-117); Aspartate Amino Transferase 234 U/L (0-37); Blood Urea Nitrogen 102 MG/DL (7-18); Calcium 9.2 MG/DL (8.5-10.1); Glucose 96 MG/DL (74-106); Potassium 3.8 MMOL/L (3.5-5.1); Sodium 157 MMOL/L (136-145)
[2017-12-19 13:13] LABS: Troponin I Only 0.068 NG/ML (0.00-0.045)
[2017-12-19] MEDS: MEROPENEM 1,000 MG in SYRINGE 1 EACH IV SCH ×2 (13:15→21:51)
[2017-12-19 13:16] LABS: Barbiturates Screen,Urine Negative (Negative); Benzodiazepines Screen,Urine Negative (Negative); Cannabinoid Screen,Urine Negative (Negative); Opiate Screen,Urine Negative (Negative); Phencyclidine Screen,Urine Negative (Negative)
[2017-12-19 13:25] LABS: PT Patient Result 71.7 SECS; Partial Thromboplastin Time 46.7 SECS (0-40)
[2017-12-19 13:26] LABS: INR 7.3
[2017-12-19] MEDS ORDERED: NOREPINEPHRINE 8 MG in SODIUM CHLORIDE 0.9% 242 ML IV SCH (14:00)
[2017-12-19] MEDS ORDERED: ACETAMINOPHEN 325 MG TABLET PO PRN ×2 (14:25→16:37)
[2017-12-19] MEDS ORDERED: ALBUTEROL 2.5 MG/3 ML NEB RESP TX PRN (14:25)
[2017-12-19] MEDS ORDERED: ONDANSETRON 4 MG/2 ML VIAL IV PRN (14:25)
[2017-12-19] MEDS ORDERED: VANCOMYCIN INJ 750 MG in SODIUM CHLORIDE 0.9% 250 ML IV PRN (14:30)
[2017-12-19] MEDS ORDERED: PANTOPRAZOLE 40 MG VIAL IV SCH (14:30)
[2017-12-19] MEDS ORDERED: PHYTONADIONE 10 MG/1 ML AMP SUBCUT STA (14:36)
[2017-12-19] MEDS ORDERED: SODIUM CHLORIDE 0.45% 1,000 ML IV SCH (15:00)
[2017-12-19] MEDS ORDERED: DEXTROSE 50% 25 GM/50 ML VIAL IV PRN ×2 (15:10→16:37)
[2017-12-19] MEDS ORDERED: GLUCAGON 1 MG VIAL IM PRN ×2 (15:10→16:37)
[2017-12-19] MEDS ORDERED: PHYTONADIONE 10 MG/1 ML AMP ONE (15:20)
[2017-12-19] MEDS ORDERED: INSULIN LISPRO 100 UNIT/ML SUBCUT SCH (18:00)
[2017-12-19] MEDS ORDERED: INSULIN REGULAR 100 UNIT/ML SUBCUT SCH ×2 (18:00)
[2017-12-19 18:26] LABS: Calcium 8.7 MG/DL (8.5-10.1); Potassium 4.1 MMOL/L (3.5-5.1)
[2017-12-19] MEDS ORDERED: PANTOPRAZOLE 40 MG VIAL IV ONE (18:26)
[2017-12-19] MEDS ORDERED: LORazepam 2 MG/1 ML VIAL IV PRN (19:09)
[2017-12-19] MEDS ORDERED: SCOPOLAMINE 1.5 MG PATCH TRANSDERM ONE (19:11)
[2017-12-19] MEDS ORDERED: ACETAMINOPHEN 650 MG SUPP RECTAL PRN (19:12)
[2017-12-19] MEDS ORDERED: GLYCOPYRROLATE 0.4 MG/2 ML VIAL IV PRN (19:12)
[2017-12-19] MEDS: MORPHINE 2 MG/1 ML SYRINGE IV PRN ×2 (19:17→20:40)
[2017-12-19] MEDS ORDERED: VANCOMYCIN INJ 1,000 MG in SODIUM CHLORIDE 0.9% 250 ML IV ONE (20:00)
[2017-12-19 22:02] VITALS: BP 55/35
[2017-12-20] MEDS: MORPHINE 2 MG/1 ML SYRINGE IV PRN (02:05)
[2017-12-20] MEDS ORDERED: PHYTONADIONE 5 MG/5 ML ORAL.SYR PO SCH (09:00)
[2017-12-20] MEDS ORDERED: ASPIRIN CHEW 81 MG TABLET PO SCH (09:00)
[2017-12-20] MEDS ORDERED: TAMSULOSIN 0.4 MG CAPSULE PO SCH (09:00)
[2017-12-20] MEDS ORDERED: AMIODARONE 200 MG TABLET PO SCH (09:00)
[2017-12-21] MEDS: MORPHINE 2 MG/1 ML SYRINGE IV PRN ×12 (07:42→19:17)
== END 2017-12-21 19:25 | disposition expired | DRG 720 ==
LOC: N.ED 11:51 → SUATTDRO 18:08 → N.EDINP 18:08 → N.CC 18:20 → N.2E 22:40
PROVIDERS: ADMIT Internal Medicine; ATTEND Internal Medicine Infectious Disease